=== PATIENT | female | born 1970 | race Caucasian/White ===

== ENCOUNTER 2019-05-19 14:29 | Emergency (ER) | payer OTHER ==
[~2019-05-19] VITALS: Ht 154.9 cm; Wt 94.8 kg
[~2019-05-19 14:29] MED LIST: ALPRAZOLAM0.5 MG PO; ARMOUR THYROID120 MG PO; ARMOUR THYROID60 MG PO; CYCLOBENZAPRINE5 MG PO; EFFEXOR XR75 MG PO; FARXIGA10 MG PO; FLOMAX0.4 MG PO; GLIPIZIDE XL5 MG PO; IBUPROFEN400 MG PO; INVOKAMET 150-1 EACH PO; INVOKAMET 50-51 EACH PO; LEVOXYL112 MCG PO; LORTAB 5-500 T1 EACH PO; METOPROLOL SUC100 MG PO; METOPROLOL SUCC50 MG PO; NAPROXEN500 MG PO; NYSTATIN15 GM TOP; ONDANSETRON ODT4 MG SL; PAIN RELIEF500 M1 PO; PERCOCET 5-3251 EACH PO; POTASSIUM CHLO10 MEQ PO; SIMVASTATIN10 MG PO; SIMVASTATIN20 MG PO; TRAMADOL HCL50 MG PO; TRIAMTERENE-HC1 EAC1 PO; VENLAFAXINE HCL75 MG PO; ZOLOFT50 MG PO
--- OUTSIDE RECORDS SUMMARY | 2019-05-19 14:32 | XMS ---
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 There are no care providers on record at this time. Tatyana has no Care Guidelines for this patient. [facility] VISIT COUNT (12 MO.) 1 BOBBY [place] TOTAL 1 NOTE: Visits indicate total known visits. ED/UCC VISIT TRACKING (12 MO.) 05/19/2019 14:30 [facility] [place] TYPE: Emergency COMPLAINT: - ARM BRUISING, WORK INJ INPATIENT VISIT TRACKING (12 MO.) No inpatient visits to display in this time frame [email or web address]
== END 2019-05-19 16:45 | disposition home or self-care (01) ==
LOC: ED 14:29
DX: S46.111A Strain of muscle, fascia and tendon of long head of biceps, right arm, initial encounter (principal); E11.9 Type 2 diabetes mellitus without complications; E03.9 Hypothyroidism, unspecified; F41.9 Anxiety disorder, unspecified; F32.9 Major depressive disorder, single episode, unspecified; F17.200 Nicotine dependence, unspecified, uncomplicated; Z88.1 Allergy status to other antibiotic agents; Z88.2 Allergy status to sulfonamides; Z88.5 Allergy status to narcotic agent; Z88.7 Allergy status to serum and vaccine; Z79.899 Other long term (current) drug therapy; X50.0XXA Overexertion from strenuous movement or load, initial encounter
CPT/HCPCS: 99283; 99406

== ENCOUNTER 2022-12-31 16:06 | Emergency (ER) | payer OTHER ==
[~2022-12-31] VITALS: Ht 154.9 cm; Wt 93.0 kg
[2022-12-31] MEDS ORDERED: LISINOPRIL10 MG PO (16:31)
[2022-12-31] MEDS ORDERED: PROZAC20 MG PO (16:31)
[2022-12-31] MEDS ORDERED: GLIPIZIDE5 MG PO (16:31)
[2022-12-31] MEDS ORDERED: LANTUS100 UNITS/ SUB-Q (16:32)
[2022-12-31] MEDS ORDERED: VICTOZA 2-0.6 MG/0.1 SUB-Q (16:33)
--- NOTE | 2022-12-31 22:12 | EKG ---
[facility] [address] [place] [address] Signed Sinus tachycardia Otherwise normal ECG No previous ECGs available Confirmed by Javier Seth MD () on 12/31/2022 10:12:15 PM Electronically Signed By: JAVIER SETH MD 12/31/222211 PATIENT NAME: HARVEY ROLON Electrocardiogram DATE OF : 70 PHYSICIAN: JAVIER SETH MD REPORT #: [id number] REPORT IS CONFIDENTIAL AND NOT TO BE RELEASED WITHOUT AUTHORIZATION
== END 2022-12-31 18:13 | disposition home or self-care (01) ==
LOC: ED 16:06
DX: R07.81 Pleurodynia (principal); E11.9 Type 2 diabetes mellitus without complications; E03.9 Hypothyroidism, unspecified; I10 Essential (primary) hypertension; F17.200 Nicotine dependence, unspecified, uncomplicated; Z88.7 Allergy status to serum and vaccine; Z88.2 Allergy status to sulfonamides; Z88.1 Allergy status to other antibiotic agents; Z88.5 Allergy status to narcotic agent; Z79.899 Other long term (current) drug therapy; Z79.4 Long term (current) use of insulin
CPT/HCPCS: 36415; 71045; 80053; 83735; 84484; 85025; 93005; 93010; 99285-25